=== PATIENT | male | born 1970 | race Caucasian/White ===

== ENCOUNTER 2020-08-17 17:52 | Emergency (ER) | payer SELFPAY ==
[~2020-08-17 17:52] MED LIST: BENTYL10 MG PO; CARAFATE1 GM PO; CYCLOBENZAPRINE10 MG PO; FLEXERIL5 MG PO; IBUPROFEN800 MG PO; NORCO 5-325 TA1 EACH PO; PENICILLIN V P250 M1 PO; PERCOCET 5-3251 EACH PO; ZOFRAN8 MG PO
[2020-08-17] MEDS ORDERED: NORCO 5-325 TA1 EACH PO (19:29)
== END 2020-08-17 19:55 | disposition home or self-care (01) ==
LOC: FER 17:52
DX: S52.501A Unspecified fracture of the lower end of right radius, initial encounter for closed fracture (principal); S52.614A Nondisplaced fracture of right ulna styloid process, initial encounter for closed fracture; K21.9 Gastro-esophageal reflux disease without esophagitis; F17.210 Nicotine dependence, cigarettes, uncomplicated; Z79.899 Other long term (current) drug therapy; W00.0XXA Fall on same level due to ice and snow, initial encounter
CPT/HCPCS: 73110; 73130

== ENCOUNTER 2020-09-06 00:17 | Emergency (ER) | payer OTHER ==
[2020-09-06 01:38] LABS: BASOPHIL 0.5 % (0-2); EOSINOPHIL 0.9 % (0-5); HCT 45.6 % (42.0-52.0); HGB 15.4 g/dl (13.2-18.0); LYMPHOCYTE 35.6 % (15-48); MCH 31.9 pg (25.0-31.0); MCHC 33.8 g/dL (32.0-36.0); MCV 94.4 fL (78.0-100.0); MONOCYTE 6.7 % (0-12); MPV 9.8 fL (6.0-9.5); NEUTROPHIL 54.9 % (41-80); NRBC 0; PLT 290 K/uL (150-400); RBC 4.83 M/uL (4.70-6.00); RDW 12.5 % (11.5-14.0); WBC 13.1 K/uL (4.0-10.5)
[2020-09-06 02:07] LABS: AMPHETAMINES NEGATIVE (NEGATIVE); BARBITURATES NEGATIVE (NEGATIVE); ECSTASY (MDMA) NEGATIVE (NEGATIVE); MARIJUANA (THC) POSITIVE (NEGATIVE); METHADONE NEGATIVE (NEGATIVE); OPIATES NEGATIVE (NEGATIVE); OXYCODONE NEGATIVE (NEGATIVE)
[2020-09-06 02:09] LABS: ACETAMINOPHEN (TYLENOL) < 2.0 ug/mL (10.0-30.0); ALBUMIN 3.6 g/dL (3.4-5.0); ALKALINE PHOSHATASE 108 U/L (46-116); ALT 30 U/L (16-63); AST 20 U/L (15-37); BILIRUBIN - TOTAL 0.3 mg/dL (0.2-1.0); BUN 16 mg/dL (7-18); BUN/CREAT RATIO (CALC) 17.6 RATIO; CHLORIDE 100 mmol/L (98-107); CO2 (BICARBONATE) 30 mmol/L (21-32); CREATININE 0.91 mg/dL (0.67-1.17); GLOBULIN (CALCULATION) 4.1 g/dL; GLUCOSE 96 mg/dL (74-106); POTASSIUM 4.1 mmol/L (3.5-5.1); TOTAL PROTEIN 7.7 g/dL (6.4-8.2)
== END 2020-09-06 02:20 | disposition left against medical advice (07) ==
LOC: FER 00:17
PROVIDERS: Emergency Medicine
DX: R55 Syncope and collapse (principal); R07.9 Chest pain, unspecified; F17.210 Nicotine dependence, cigarettes, uncomplicated; Z87.81 Personal history of (healed) traumatic fracture; Z87.19 Personal history of other diseases of the digestive system; Z53.8 Procedure and treatment not carried out for other reasons
CPT/HCPCS: 36415; 71045; 80053; 80305; 84484; 85025; 93005; G0480

== ENCOUNTER 2021-03-07 09:29 | Emergency (ER) | payer OTHER ==
[2021-03-07] MEDS ORDERED: PENICILLIN V P250 M1 PO (09:57)
== END 2021-03-07 10:05 | disposition home or self-care (01) ==
LOC: FER 09:29
DX: K02.9 Dental caries, unspecified (principal); K05.10 Chronic gingivitis, plaque induced; F17.210 Nicotine dependence, cigarettes, uncomplicated
CPT/HCPCS: 99282

== ENCOUNTER 2021-08-01 14:15 | Emergency (ER) | payer OTHER | END 2021-08-01 16:58 | disposition home or self-care (01) | LOC: FER 14:15 | DX: M79.672 Pain in left foot (principal); K21.9 Gastro-esophageal reflux disease without esophagitis; F17.210 Nicotine dependence, cigarettes, uncomplicated; Z79.899 Other long term (current) drug therapy | CPT/HCPCS: 73610; 93971 ==

== ENCOUNTER 2021-09-02 08:48 | Emergency (ER) | payer OTHER ==
[2021-09-02 09:51] LABS: CORONAVIRUS 2019 SARS-COV-2 NEGATIVE (NEGATIVE); INFLUENZA A NAA NEGATIVE (NEGATIVE)
== END 2021-09-02 10:16 | disposition home or self-care (01) ==
LOC: FER 08:48
PROVIDERS: Emergency Medicine
DX: J06.9 Acute upper respiratory infection, unspecified (principal); F17.210 Nicotine dependence, cigarettes, uncomplicated; Z20.822 Contact with and (suspected) exposure to COVID-19
CPT/HCPCS: 71045; U0002